=== PATIENT | male | born 1980 | race African-American/Black ===

== ENCOUNTER 2020-10-18 11:39 | Emergency (ER) | payer OTHER ==
[2020-10-18 11:44] VITALS: BP 146/91; PULSE 80; TEMP 97; BMI 36.8
[2020-10-18] MEDS ORDERED: KETOROLAC TROMETHAMINE 60 MG/2 ML VIAL IM ONE (12:57)
[2020-10-18] MEDS ORDERED: KETOROLAC TROMETHAMINE 60 MG/2 ML VIAL ONE (13:13)
== END 2020-10-18 13:19 | disposition home or self-care (01) ==
LOC: JERFT 11:39
PROC: 3E0233Z Introduction of Anti-inflammatory into Muscle, Percutaneous Approach (ICD-10-PCS; principal; 2020-10-18)
DX: K08.89 Other specified disorders of teeth and supporting structures (principal)
CPT/HCPCS: 99284-25

== ENCOUNTER 2023-08-22 08:27 | Emergency (ER) | payer BC, OTHER ==
[2023-08-22 08:33] VITALS: BP 143/93; PULSE 78; RESP 18; TEMP 97.9; BMI 38.9
== END 2023-08-22 10:21 | disposition home or self-care (01) ==
LOC: JERFT 08:27
DX: S83.92XA Sprain of unspecified site of left knee, initial encounter (principal); X50.1XXA Overexertion from prolonged static or awkward postures, initial encounter
CPT/HCPCS: 73562-TC-LT-FY; 99283-25

== ENCOUNTER 2023-09-06 08:25 | Emergency (ER) | payer OTHER ==
[2023-09-06 08:30] VITALS: BP 145/78; PULSE 71; RESP 20; TEMP 98.5; BMI 29.2
== END 2023-09-06 12:20 | disposition home or self-care (01) ==
LOC: JERFT 08:25
DX: S90.112A Contusion of left great toe without damage to nail, initial encounter (principal); W20.8XXA Other cause of strike by thrown, projected or falling object, initial encounter; Y99.0 Civilian activity done for income or pay
CPT/HCPCS: 73630-TC-LT; 99283-25

== ENCOUNTER 2023-11-16 19:53 | Emergency (ER) | payer OTHER ==
[2023-11-16 20:02] VITALS: TEMP 99.1; BMI 38.9
[2023-11-16 20:56] LABS: BASO % 0.9 % (0-2.0); EOS % 2.1 % (0-4.5); HEMATOCRIT 37.9 % (35.4-49); HEMOGLOBIN 12.5 GM/dL (11.7-16.9); LYMPH % 37.6 % (8-40); MCH 28.2 pg (25.7-33.7); MCHC 32.8 g/dl (32.0-35.9); MEAN CELL VOLUME 85.8 fl (80-96); MEAN PLT VOLUME 7.7 fl (7.5-11.1); MONO % 8.5 % (3.8-10.2); NEUT % 50.9 % (42.8-82.8); PLATELET COUNT 365 10^3/uL (134-434); RBC 4.42 M/mm3 (4.00-5.60); RDW 14.8 % (11.9-15.9)
[2023-11-16 21:13] LABS: POTASSIUM 3.6 mmol/L (3.5-5.1)
[2023-11-16 21:15] LABS: ALBUMIN 3.4 g/dl (3.4-5.0); CALCIUM 8.9 mg/dL (8.5-10.1)
[2023-11-16 21:16] LABS: BLOOD UREA NITROGEN 13.8 mg/dL (7-18)
[2023-11-16 21:20] LABS: BILIRUBIN,TOTAL 0.2 mg/dL (0.2-1); TOT PROT 7.5 g/dl (6.4-8.2)
[2023-11-16 22:20] VITALS: BP 118/57; PULSE 79; RESP 16
== END 2023-11-17 00:28 | disposition home or self-care (01) ==
LOC: JER 19:53
DX: R07.2 Precordial pain (principal); G89.29 Other chronic pain
CPT/HCPCS: 36415; 71046-TC-FY; 80053; 84484; 85025; 93005; 93010; 99285-25